=== PATIENT | female | born 1940 | race Two or more races ===

== ENCOUNTER 2023-09-17 13:44 | Outpatient (REF) | payer MEDICARE, SELFPAY ==
[2023-09-17 14:50] LABS: C. Difficile PCR NEGATIVE (NEGATIVE)
== END 2023-09-17 13:45 | disposition home or self-care (01) ==
LOC: LAB 13:44
PROVIDERS: PCP Internal Medicine; Visit Provider Internal Medicine
DX: R19.7 Diarrhea, unspecified (principal)
CPT/HCPCS: 87493

== ENCOUNTER 2024-04-10 20:07 | Observation (INO) | payer MEDICARE, SELFPAY ==
[2024-04-10 20:17] VITALS: BP 140/89; PULSE 78; TEMP 36.7; O2SAT 95; BMI 28.3
--- NOTE | 2024-04-10 21:55 | CT_ITS ---
The [address] [address] Patient Name: MIKE CELAYA MRN: [id number] date: 1940 Sex: F Assigned Patient Location: ER Current Patient Location: ER Accession/Order Number: [id number] Exam Date: 04/10/2024 22:50 Report Date: 04/11/2024 02:23 At the request of: TRENT MARKER Procedure: CT abdomen pelvis w con EXAM: CT abdomen pelvis w con HISTORY: dysfunctional uterine bleeding COMPARISON: None. TECHNIQUE: IV contrast enhanced CT imaging of the abdomen and pelvis was performed. Sagittal and coronal reconstructions are provided. Dose reduction techniques were achieved by using automated exposure control and/or adjustment of mA and/or kV according to patient size and/or use of iterative reconstruction technique. FINDINGS: CT ABDOMEN: The heart is top normal in size. There is no pericardial effusion. Coronary arterial calcifications are seen in the LAD and RCA. The lung bases are clear. The liver, gallbladder, pancreas, spleen, adrenal glands, and right kidney are unremarkable. There is nonspecific mild wall thickening and enhancement in the left renal pelvis and ureter extending to the UVJ. There is wall thickening in the decompressed stomach. There is a small periampullary duodenal diverticulum. The small bowel is otherwise unremarkable. Prominent aortic and iliac arterial calcifications are present without aneurysm or dissection. The IVC is unremarkable. CT PELVIS: There is a markedly abnormal urinary bladder with prominent wall thickening favoring cystitis and a multilobular contour likely due to multiple bladder diverticula. There is a nonspecific ill-defined central mass-like lesion in the bladder lumen, measuring 7 x 5.8 cm and 71 Hounsfield units on image 156 of series 3. Underlying malignant bladder mass cannot be excluded. The endometrial canal is distended with air and layering fluid, measuring 1.1 cm in diameter on image 149. The uterus is otherwise unremarkable. No wall defect is seen. There is prominent sigmoid diverticulosis. Moderate stool is seen in the colon. No free fluid, loculated fluid or free air is seen in the abdomen or pelvis. There is advanced degenerative disc disease at L1-L2. There is a mild grade 1 anterolisthesis of L4 on L5. No acute osseous abnormality or suspicious bony lesion is seen. CT/CT abdomen pelvis w con IMPRESSION: 1. Markedly abnormal urinary bladder with diffuse bladder wall thickening favoring cystitis over chronic wall hypertrophy. Lobular bladder contour is likely due to multiple bladder diverticula. Nonspecific central 7 cm mass-like lesion could reflect blood products though underlying bladder malignancy cannot be excluded. Cystoscopy could further evaluate. 2. Mild wall thickening and enhancement in the left renal pelvis and ureter suspicious for upper urinary tract infection. No pyelonephritis is seen. 3. Mildly distended endometrial cavity with air and layering fluid, nonspecific. In the absence of recent intervention, a potential fistula with adjacent bowel cannot be excluded, though no uterine wall defect is seen. Clinical correlation is recommended. 4. Sigmoid diverticulosis. 5. Nonspecific wall thickening in the decompressed stomach could reflect gastric decompression or nonspecific gastritis. No other potential acute findings are seen in the abdomen or pelvis. Additional nonemergent findings are described above. Electronically authenticated by: TREVOR PRICE Date: 04/11/2024 02:23
[2024-04-10 22:17] LABS: Hematocrit 37.6 % (36.0-48.0); Hemoglobin 11.6 g/dL (12.0-16.0); Mean Corpuscular HGB Conc 30.9 g/dL (29.9-35.2); Mean Corpuscular Volume 84.3 fL (81.0-99.0); Mean Platelet Volume 9.4 fL (9.5-13.5); Platelet Count 238 10^3/uL (150-450); Red Blood Count 4.46 10^6/uL (4.20-5.40); Red Cell Distribution Width 16.3 % (11.0-15.0); White Blood Count 13.4 10^3/uL (4.0-11.0)
[2024-04-10 22:20] LABS: Clarity Urine TURBID (CLEAR); Color Urine DK RED (YELLOW)
[2024-04-10 22:21] LABS: Bilirubin Urine COLOR INTERFERENCE (NEGATIVE); Blood Urine COLOR INTERFERENCE (NEGATIVE); Glucose Urine UA COLOR INTERFERENCE mg/dL (NEGATIVE); Ketones Urine COLOR INTERFERENCE mg/dL (NEGATIVE); Nitrite Urine COLOR INTERFERENCE (NEGATIVE); Protein Urine COLOR INTERFERENCE mg/dL (NEG/TRACE); Specific Gravity Urine >=1.030 (1.005-1.025); Urobilinogen Urine COLOR INTERFERENCE EU/dL (0.2-1.0); pH Urine COLOR INTERFERENCE (5.0-9.0)
[2024-04-10 22:31] LABS: Bacteria Urine NONE SEEN #/HPF (NONE SEEN); Cast Seen? NONE SEEN #/LPF (NONE SEEN); Crystals Seen? None Seen #/HPF (None Seen); Leukocyte Esterase Urine COLOR INTERFERENCE (NEGATIVE); Mucus Urine NONE SEEN (NONE SEEN); RBC Urine >100 #/HPF (0-2); Squamous Epithelial Cell Urine NONE SEEN #/LPF (NONE/RARE); Urine Culture Indicated YES
[2024-04-10 22:36] LABS: Alanine Aminotransferase 23 U/L (14-59); Albumin Globulin Ratio 0.7; Albumin Level 2.7 g/dL (3.4-5.0); Alkaline Phosphatase 133 U/L (46-116); Aspartate Amino Transferase 35 U/L (15-37); BUN Creatinine Ratio 22.7; Bilirubin Total 0.3 mg/dL (0.2-1.0); Calcium 10.2 mg/dL (8.5-10.1); Carbon Dioxide 20.4 mmol/L (21.0-32.0); Chloride 107 mmol/L (98-107); Estimated GFR (African America 43 (>=60 mL/min/1.73m^2); Estimated GFR (Non-African Ame 36 (>=60 mL/min/1.73m^2); Globulin 3.8 g/dL; Glucose 129 mg/dL (74-106); Potassium 4.4 mmol/L (3.5-5.1); Sodium 139 mmol/L (136-145); Total Protein 6.5 g/dL (6.4-8.2)
[2024-04-10 22:41] LABS: Atypical Lymphocytes Abs Man 1.07; Eosinophils Absolute Manual 0.13 10^3/uL (0.00-0.70); Hypochromasia 3+; Lymphocytes Absolute Manual 2.41 10^3/uL (1.20-3.80); Monocytes Absolute Manual 1.34 10^3/uL (0.30-0.80); Poikilocytosis 2+; Segmented Neut Absolute Manual 8.57 10^3/uL (1.4-6.5)
--- NOTE | 2024-04-10 22:55 | PC.NURSE ---
When patient stood to get in W/C mod. amount blood was noted on floor down legs and on socks
[2024-04-10 23:22] VITALS: BP 143/76; PULSE 71; O2SAT 95
--- NOTE | 2024-04-10 23:28 | ED_ITS ---
HPI - Female Genitourinary General Chief complaint: Urogenital-Female Stated complaint: BLEEDING, UNK WHERE Time Seen by Provider: 04/10/24 21:39 Source: family Mode of arrival: Wheelchair Limitations: no limitations History of Present Illness HPI Narrative: This 83-year-old female presents for evaluation of vaginal bleeding that started earlier today. The patient was recently placed on an antibiotic for urinary tract infection. The patient denies any abdominal pain. She denies any pelvic pain. She has not had any weight loss. Her [id number] states that she went to the bathroom and passed several small clots and had vaginal bleeding similar to a menstrual period. The patient did have Pap smears earlier in her life. She is not sexually active. She had 3 children. Related Data Home Medications ?Medication ?Instructions ?Recorded ?Confirmed aspirin 81 mg tablet,delayed 81 mg PO DAILY 04/10/24 04/10/24 release (Ecotrin Low Strength) atorvastatin 40 mg tablet 40 mg PO DAILY 04/10/24 04/10/24 citalopram 40 mg tablet 40 mg PO DAILY 04/10/24 04/10/24 empagliflozin 25 mg tablet 25 mg PO DAILY 04/10/24 04/10/24 (Jardiance) losartan 100 mg tablet 100 mg PO DAILY 04/10/24 04/10/24 metoprolol succinate 100 mg 100 mg PO DAILY 04/10/24 04/10/24 tablet,extended release 24 hr metoprolol succinate 50 mg 50 mg PO DAILY 04/10/24 04/10/24 tablet,extended release 24 hr nitrofurantoin 100 mg PO DAILY 04/10/24 04/10/24 monohydrate/macrocrystals 100 mg capsule omeprazole 20 mg capsule,delayed 20 mg PO DAILY 04/10/24 04/10/24 release spironolactone 25 mg tablet 25 mg PO DAILY 04/10/24 04/10/24 Allergies Allergy/AdvReac Type Severity Reaction Status Date / Time pentazocine (From Jennifer) Allergy Muscle Pain Verified 04/10/24 20:23 amoxicillin AdvReac Nausea Verified 04/10/24 20:23 Review of Systems ROS Status of ROS 10 or more systems reviewed and unremark able except as noted in history and below PFSH PFSH Social History Little interest or pleasure in doing things: not at all Feeling down, depressed, or hopeless: not at all Exam Narrative Exam Narrative: Vital signs and Nursing Notes reviewed: Patient is afebrile with a normal pulse, blood pressure is mildly elevated at 143/76, she is not hypoxic with pulse ox of 95% on room air General: Nontoxic elderly female, she is awake, alert, oriented, no acute distress, lying comfortably on the stretcher HEENT: Normocephalic atraumatic, mucous membranes are moist and pink, eyes are clear, normal conjunctiva, vision is grossly intact, she is hard of hearing Chest: Lungs are clear to auscultation with good air entry, there is no wheezing rhonchi or rales appreciated no accessory muscle use, patient is speaking in complete sentences-no chest wall tenderness to palpation CVS: Regular rate and rhythm S1-S2, no murmurs rubs or gallops, pulses are brisk and equal bilaterally ABD: Soft, nondistended, nontender, no rebound guarding or rigidity, bowel sounds are normal, no pulsatile masses appreciated : Normal-appearing external genitalia, urethra is normal in appearance, there is dark red blood exuding from the vaginal introitus, no notable masses or other abnormalities appreciated on visual expection Extremities: Moving all extremities, no lower extremity tenderness or swelling noted, negative Homans' sign, pulses are brisk and equal bilaterally Skin: Normal in appearance without rash,pallor, petechiae or purpura Neuro: No focal deficits Constitutional Vital Signs, click to edit/add: Last Vital Signs Temp 98.1 F 04/10/24 20:17 Pulse 63 04/11/24 03:39 Resp 20 04/11/24 03:39 BP 125/54 04/11/24 03:39 Pulse Ox 97 04/11/24 03:39 O2 Del Method Room Air 04/11/24 03:39 Course Vital Signs Vital signs: Vital Signs Temperature 98.1 F 04/10/24 20:17 Pulse Rate 78 04/10/24 20:17 Respiratory Rate 18 04/10/24 20:17 Blood Pressure 140/89 04/10/24 20:17 Pulse Oximetry 95 04/10/24 20:17 Oxygen Delivery Method Room Air 04/10/24 20:17 Temperature 98.1 F 04/10/24 20:17 Pulse Rate 63 04/11/24 03:39 Respiratory Rate 20 04/11/24 03:39 Blood Pressure 125/54 04/11/24 03:39 Pulse Oximetry 97 04/11/24 03:39 Oxygen Delivery Method Room Air 04/11/24 03:39 MDM - Female Genitourinary MDM Narrative Medical decision making narrative: This 83-year-old female presents for evaluation of painless vaginal bleeding. She is currently being treated for urinary tract infection and also on Diflucan. She was brought to the emergency department after she started passing some clots from her vagina. She is not having any abdominal pain. She had Pap smears in the past but none recently. She is not on any blood thinners besides a baby aspirin. 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 She is not sexually active. She has not had any pelvic trauma. Her vital signs are stable. Her abdomen is soft. Evaluation of her genitalia reveals bright red blood coming from her vaginal introitus. She was straight cathed and the urine was also bright red. She declined the need for any pain medication. Routine labs were ordered. She has a mildly elevated white count at 13.4 with a stable hemoglobin at 11.6. Lecture lites and liver function tests are normal. CT scan of the abdomen pelvis with IV contrast was ordered and is included in the body of this report. It shows markedly abnormal urinary bladder with diffuse bladder wall thickening favoring cystitis of her chronic wall hypertrophy with a lobular bladder contour likely due to multiple bladder diverticula, nonspecific central 7 cm masslike lesion that could reflect blood products although underlying bladder malignancy could not be excluded with recommendation for cystoscopy. It also showed mild wall thickening and enhancement of the left renal pelvis and ureter suspicious for upper urinary tract infection but no pyelonephritis was seen. It also showed a mildly distended endometrial cavity with air and layering fluid which was nonspecific. It stated in the absence of recent intervention a potential fistula with adjacent bowel could not be excluded although no uterine wall defect was seen. The results of these findings were discussed with the patient and her son. I discussed this with urology on-call at this facility who is concerned that the patient may have a utero-vesicular fistula and he recommended transfer to a tertiary care center. Case was discussed with Dr Baeza at [facility] in [place] who refused her transfer stating that she should be able to have a cystoscopy at this facility and if she has a fistula, that can be dealt with separately. Call was placed to [facility], there is a bed wait and they will call us back. Call was placed to [facility] and we are awaiting a call back from them. Repeat CBC with differential was ordered due to the ongoing bleeding. Her hemoglobin dropped from 11.6-10.8. She has remained hemodynamically stable. There has been no noted stool in her depends and the patient has not noted any stool when she urinates. Medical Records Medical records narrative: [place] [address] CT Scan Report Signed Patient: MIKE CELAYA MR#: [id number] : 1940 Acct:[id number] Age/Sex: 83 / F ADM Date: 04/10/24 Loc: ER Attending Dr: Ordering Physician: Krystal Dinero Date of Service: 04/10/24 Procedure(s): CT abdomen pelvis w con Accession Number(s): [id number] cc: ELMA LINDO ~ The [place] [id number] Patient Name: MIKE CELAYA MRN: [id number] date: 1940 Sex: F Assigned Patient Location: ER Current Patient Location: ER Accession/Order Number: [id number] Exam Date: 04/10/2024 22:50 Report Date: 04/11/2024 02:23 At the request of: KRYSTAL DINERO Procedure: CT abdomen pelvis w con EXAM: CT abdomen pelvis w con HISTORY: dysfunctional uterine bleeding COMPARISON: None. TECHNIQUE: IV contrast enhanced CT imaging of the abdomen and pelvis was performed. Sagittal and coronal reconstructions are provided. Dose reduction techniques were achieved by using automated exposure control and/or adjustment of mA and/or kV according to patient size and/or use of iterative reconstruction technique. FINDINGS: CT ABDOMEN: The heart is top normal in size. There is no pericardial effusion. Coronary arterial calcifications are seen in the LAD and RCA. The lung bases are clear. The liver, gallbladder, pancreas, spleen, adrenal glands, and right kidney are unremarkable. There is nonspecific mild wall thickening and enhancement in the left renal pelvis and ureter extending to the UVJ. There is wall thickening in the decompressed stomach. There is a small periampullary duodenal diverticulum. The small bowel is otherwise unremarkable. Prominent aortic and iliac arterial calcifications are present without aneurysm or dissection. The IVC is unremarkable. CT PELVIS: There is a markedly abnormal urinary bladder with prominent wall thickening favoring cystitis and a multilobular contour likely due to multiple bladder diverticula. There is a nonspecific ill-defined central mass-like lesion in the bladder lumen, measuring 7 x 5.8 cm and 71 Hounsfield units on image 156 of series 3. Underlying malignant bladder mass cannot be excluded. The endometrial canal is distended with air and layering fluid, measuring 1.1 cm in diameter on image 149. The uterus is otherwise unremarkable. No wall defect is seen. There is prominent sigmoid diverticulosis. Moderate stool is seen in the colon. No free fluid, loculated fluid or free air is seen in the abdomen or pelvis. There is advanced degenerative disc disease at L1-L2. There is a mild grade 1 anterolisthesis of L4 on L5. No acute osseous abnormality or suspicious bony lesion is seen. CT/CT abdomen pelvis w con IMPRESSION: 1. Markedly abnormal urinary bladder with diffuse bladder wall thickening favoring cystitis over chronic wall hypertrophy. Lobular bladder contour is likely due to multiple bladder diverticula. Nonspecific central 7 cm mass-like lesion could reflect blood products though underlying bladder malignancy cannot be excluded. Cystoscopy could further evaluate. 2. Mild wall thickening and enhancement in the left renal pelvis and ureter suspicious for upper urinary tract infection. No pyelonephritis is seen. 3. Mildly distended endometrial cavity with air and layering fluid, nonspecific. In the absence of recent intervention, a potential fistula with adjacent bowel cannot be excluded, though no uterine wall defect is seen. Clinical correlation is recommended. 4. Sigmoid diverticulosis. 5. Nonspecific wall thickening in the decompressed stomach could reflect gastric decompression or nonspecific gastritis. No other potential acute findings are seen in the abdomen or pelvis. Additional nonemergent findings are described above. Electronically authenticated by: TREVOR PRICE Date: 04/11/2024 02:23 Lab Data Labs: Lab Results 04/10/24 04/10/24 04/11/24 Range/Units 22:05 22:10 01:26 WBC 13.4 H 14.1 H (4.0-11.0) 10^3/uL RBC 4.46 4.20 (4.20-5.40) 10^6/uL Hgb 11.6 L 10.8 L (12.0-16.0) g/dL Hct 37.6 35.2 L (36.0-48.0) % MCV 84.3 83.8 (81.0-99.0) fL MCH 26.0 L 25.7 L (26.7-34.0) pg MCHC 30.9 30.7 (29.9-35.2) g/dL RDW 16.3 H 16.3 H (11.0-15.0) % Plt Count 238 243 (150-450) 10^3/uL MPV 9.4 L 9.4 L (9.5-13.5) fL Neut % (Auto) 54.9 (43.0-75.0) % Lymph % (Auto) 30.5 (20.5-60.0) % [place] % (Auto) 13.6 H (1.7-12.0) % Eos % (Auto) 0.2 L (0.9-7.0) % Baso % (Auto) 0.4 (0.2-2.0) % Neut # (Auto) 7.7 H (1.4-6.5) 10^3/uL Lymph # (Auto) 4.3 H (1.2-3.8) 10^3/uL [place] # (Auto) 1.9 H (0.3-0.8) 10^3/uL Eos # (Auto) 0.0 (0.0-0.7) 10^3/uL Baso # (Auto) 0.1 (0.0-0.1) 10^3/uL Abs Immat Gran (auto) 0.06 H (0.00-0.03) 10^3/uL Seg Neuts % (Manual) 64.0 (43.0-75.0) Lymphocytes % (Manual) 18.0 L (20.5-60.0) % Atypical Lymphs % (Man) 8.0 % Monocytes % (Manual) 10.0 (1.7-12.0) % Eosinophils % (Manual) 1.0 (0.9-7.0) % Basophils % (Manual) 0.0 L (0.2-2.0) % Imm/Tot Granulo (auto) 0.4 (0.0-0.5) % Neutrophils # (Manual) 8.57 H (1.4-6.5) 10^3/uL Lymphocytes # (Manual) 2.41 (1.20-3.80) 10^3/uL Abs Atypical Lymphs Man 1.07 Monocytes # (Manual) 1.34 H (0.30-0.80) 10^3/uL Eosinophils # (Manual) 0.13 (0.00-0.70) 10^3/uL Basophils # (Manual) 0.00 (0.00-0.10) 10^3/uL Hypochromasia 3+ Poikilocytosis 2+ Sodium 139 (136-145) mmol/L Potassium 4.4 (3.5-5.1) mmol/L Chloride 107 (98-107) mmol/L Carbon Dioxide 20.4 L (21.0-32.0) mmol/L Anion Gap 16.0 BUN 32.0 H (7.0-18.0) mg/dL Creatinine 1.41 H (0.55-1.02) mg/dL Est GFR ( Amer) 43 L (>=60 mL/min/1.73m^2) Est GFR (Non-Af Amer) 36 L (>=60 mL/min/1.73m^2) BUN/Creatinine Ratio 22.7 Glucose 129 H (74-106) mg/dL Calcium 10.2 H (8.5-10.1) mg/dL Total Bilirubin 0.3 (0.2-1.0) mg/dL AST 35 (15-37) U/L ALT 23 (14-59) U/L Alkaline Phosphatase 133 H (46-116) U/L Total Protein 6.5 (6.4-8.2) g/dL Albumin 2.7 L (3.4-5.0) g/dL Globulin 3.8 g/dL Albumin/Globulin Ratio 0.7 Urine Color Dk red A (YELLOW) Urine Clarity Turbid A (CLEAR) Urine pH Color interference A (5.0-9.0) Ur Specific [place] >=1.030 A (1.005-1.025) Urine Protein Color interference A (NEG/TRACE) mg/dL Urine Glucose (UA) Color interference A (NEGATIVE) mg/dL Urine Ketones Color interference A (NEGATIVE) mg/dL Urine Occult Blood Color interference A (NEGATIVE) Urine Nitrite Color interference A (NEGATIVE) Urine Bilirubin Color interference A (NEGATIVE) Urine Urobilinogen Color interference A (0.2-1.0) EU/dL Ur Leukocyte Esterase Color interference A (NEGATIVE) Urine RBC >100 A (0-2) #/HPF Urine WBC 5-10 A (NONE SEEN) #/HPF Ur Squamous Epith Cells None seen (NONE/RARE) #/LPF Urine Crystals None seen (None Seen) #/HPF Urine Bacteria None seen (NONE SEEN) #/HPF Urine Casts None seen (NONE SEEN) #/LPF Urine Mucus None seen (NONE SEEN) Ur Culture Indicated? Yes Blood Type O Positive Antibody Screen Negative Discharge Plan Discharge Chief Complaint: Urogenital-Female Clinical Impression: DUB (dysfunctional uterine bleeding), Hematuria, Mass of bladder Patient Disposition: Still a Patient Prescriptions / Home Meds: No Action atorvastatin 40 mg tablet 40 mg PO DAILY nitrofurantoin monohyd/m-cryst 100 mg capsule 100 mg PO DAILY metoprolol succinate 50 mg tablet extended release 24 hr 50 mg PO DAILY Rx Instructions: In PM citalopram 40 mg tablet 40 mg PO DAILY Jardiance 25 mg tablet 25 mg PO DAILY losartan 100 mg tablet 100 mg PO DAILY spironolactone 25 mg tablet 25 mg PO DAILY Rx Instructions: in am metoprolol succinate 100 mg tablet extended release 24 hr 100 mg PO DAILY Rx Instructions: AM omeprazole 20 mg capsule,delayed release(DR/EC) 20 mg PO DAILY aspirin [Ecotrin Low Strength] 81 mg tablet,delayed release (DR/EC) 81 mg PO DAILY Print Language: Cambodian Referrals: ELMA LINDO [Primary Care Provider] - 1 week
[2024-04-11] VITALS (29 sets, daily range): BP systolic 120–151; BP diastolic 54–79; PULSE 63–75; TEMP 36.4–36.5; O2SAT 90–99; BMI 28.3
[2024-04-11 01:41] LABS: Basophils Absolute Auto 0.1 10^3/uL (0.0-0.1); Basophils Percent Auto 0.4 % (0.2-2.0); Eosinophils Percent Auto 0.2 % (0.9-7.0); Hematocrit 35.2 % (36.0-48.0); Hemoglobin 10.8 g/dL (12.0-16.0); Immature Granulocytes Abs Auto 0.06 10^3/uL (0.00-0.03); Immature Granulocytes Pct Auto 0.4 % (0.0-0.5); Lymphocytes Absolute Auto 4.3 10^3/uL (1.2-3.8); Lymphocytes Percent Auto 30.5 % (20.5-60.0); Mean Corpuscular HGB Conc 30.7 g/dL (29.9-35.2); Mean Corpuscular Hemoglobin 25.7 pg (26.7-34.0); Mean Corpuscular Volume 83.8 fL (81.0-99.0); Mean Platelet Volume 9.4 fL (9.5-13.5); Monocytes Absolute Auto 1.9 10^3/uL (0.3-0.8); Monocytes Percent Auto 13.6 % (1.7-12.0); Neutrophils Absolute Auto 7.7 10^3/uL (1.4-6.5); Neutrophils Percent Auto 54.9 % (43.0-75.0); Platelet Count 243 10^3/uL (150-450); Red Cell Distribution Width 16.3 % (11.0-15.0); White Blood Count 14.1 10^3/uL (4.0-11.0)
[2024-04-11] MEDS: ACETAMINOPHEN 325 MG TABLET 650 MG PO ×4 (01:45→21:28)
[2024-04-11] MEDS: CEFTRIAXONE 1,000 MG in 0.9 % SODIUM CHLORIDE 50 ML 100 MG IV ×2 (03:59→21:28)
--- NOTE | 2024-04-11 07:11 | PC.NURSE ---
[facility] urology denied transfer to their facility at this time.
[2024-04-11 07:46] LABS: Hematocrit 34.3 % (36.0-48.0); Hemoglobin 10.6 g/dL (12.0-16.0); Mean Corpuscular HGB Conc 30.9 g/dL (29.9-35.2); Mean Corpuscular Hemoglobin 26.2 pg (26.7-34.0); Mean Corpuscular Volume 84.7 fL (81.0-99.0); Mean Platelet Volume 9.2 fL (9.5-13.5); Platelet Count 241 10^3/uL (150-450); Red Blood Count 4.05 10^6/uL (4.20-5.40); Red Cell Distribution Width 16.2 % (11.0-15.0); White Blood Count 12.8 10^3/uL (4.0-11.0)
--- NOTE | 2024-04-11 08:07 | PC.NURSE ---
0755 - Pt states she feels wet in her brief. This RN assists her back to bed and completes skin care. brief full of blood -- Dr Harris aware. Pt then assisted back to recliner and blood started trickling down leg. Pt does admit to having some dizziness after laying down.
[2024-04-11 08:09] LABS: Atypical Lymphocytes Abs Man 0.64; Lymphocytes Absolute Manual 3.71 10^3/uL (1.20-3.80); Monocytes Absolute Manual 1.02 10^3/uL (0.30-0.80); Segmented Neut Absolute Manual 7.42 10^3/uL (1.4-6.5)
[2024-04-11 08:10] LABS: Anisocytosis 1+; Hypochromasia 2+; Microcytosis 1+; Ovalocytes 1+; Poikilocytosis 1+
--- NOTE | 2024-04-11 10:22 | PC.NURSE ---
0930 - pt incontinent of stool at this time -- brief changed and skin care completed with new brief and chux placed. Pt would like to stay in bed and rest at this time. VS WNL. Mild amount of blood in brief at this time.
--- NOTE | 2024-04-11 12:37 | PC.NURSE ---
1230 - brought down hospital bed for pt for comfort. assisted from recliner to bed and readjusted for comfort. Pt denies any needs at this time. brief showing scant streak of blood in brief.
[2024-04-11 17:17] LABS: Hematocrit 33.2 % (36.0-48.0); Hemoglobin 10.4 g/dL (12.0-16.0)
--- NOTE | 2024-04-11 17:55 | PM.HP ---
HPI H&P: HPI History of Present Illness Chief complaint: vaginal bleeding Narrative: 83 y o female presented to ED yesterday with painless bleeding from vagina x 3 days. She initially noticed that that there was blood coming out from her vagina but she thinks some may be coming out of urethra also. She also noticed some clots. She has no symptoms to offer and denies difficulty or pain with urination. She also denies pelvic/vaginal trauma. She is not sexually active and takes low dose ASA for hx of CAD. She is not on any anticoagulation. She currently does not have an OBGYN and denies prior hx of abnormal PAP smears. I personally did not perform a pelvic exam but based on ED report, there was bright red blood coming from her vaginal introitus. Upon catheterization, there was blood in her urine also. CT abd pelvis performed in ED revealed markedly abnormal urinary bladder with diffuse bladder wall thickening favoring cystitis of her chronic wall hypertrophy and a nonspecific central 7 cm masslike lesion that could reflect blood products although underlying bladder malignancy could not be excluded. It also showed mild wall thickening and enhancement of the left renal pelvis and ureter suspicious for upper urinary tract infection and a mildly distended endometrial cavity with air and layering fluid which was nonspecific. Case was discussed with Urology at our facility and it was recommended that patient be transferred to a tertiary care center as she would require multiple Urogynecology evaluation that are not available currently at our facility. Patient was accepted for transfer to but has been waiting for a bed. Hospitalist team was consulted to admit her to [facility] floor until bed becomes available. While she has had intermittent gross bleeding since admission, there has not been a sig decline in her Hb and there is no evidence of hemodynamic instability. Patient herself also has no active symptoms to offer. Opioid HPI Opioid Management Most Recent Pain and Opioid Data: Last ORT Total Score 7 04/11/24 17:31 04/11/24 Last ORT Risk Category Moderate Risk 04/11/24 17:31 04/11/24 Review of Systems ROS Status of ROS 10 or more systems reviewed and unremarkable except as noted in history and below [facility] Medical History (Updated 04/11/24 @ 18:14 by Shaikh Cam MD) HLD (hyperlipidemia) ?E78.5 - Hyperlipidemia, unspecified (ICD-10) CKD stage 3 secondary to diabetes ?E11.22 - Type 2 diabetes mellitus with diabetic chronic kidney disease (ICD-10) ?N18.30 - Chronic kidney disease, stage 3 unspecified (ICD-10) Type 2 diabetes mellitus ?E11.9 - Type 2 diabetes mellitus without complications (ICD-10) CAD (coronary artery disease) ?I25.10 - Atherosclerotic heart disease of [place] coronary artery without angina pectoris (ICD-10) HTN (hypertension) ?I10 - Essential (primary) hypertension (ICD-10) Social History (Updated 04/11/24 @ 18:06 by Shaikh Cam MD) Within the past year, how often did you have a drink containing alcohol: never Score interpretation: A score less than 3 is consistent with normal alcohol consumption. Smoking status: Never smoker Non-prescribed substance use: denies use Highest level of school completed/degree received: high school graduate Little interest or pleasure in doing things: not at all Feeling down, depressed, or hopeless: not at all Meds Home Medications and Allergies Home Medications ?Medication ?Instructions ?Recorded ?Confirmed ?Type aspirin 81 mg tablet,delayed 81 mg PO DAILY 04/10/24 04/10/24 History release (Ecotrin Low Strength) atorvastatin 40 mg tablet 40 mg PO DAILY 04/10/24 04/10/24 History citalopram 40 mg tablet 40 mg PO DAILY 04/10/24 04/10/24 History empagliflozin 25 mg tablet 25 mg PO DAILY 04/10/24 04/10/24 History (Jardiance) losartan 100 mg tablet 100 mg PO DAILY 04/10/24 04/10/24 History metoprolol succinate 100 mg 100 mg PO DAILY 04/10/24 04/10/24 History tablet,extended release 24 hr metoprolol succinate 50 mg 50 mg PO DAILY 04/10/24 04/10/24 History tablet,extended release 24 hr nitrofurantoin 100 mg PO DAILY 04/10/24 04/10/24 History monohydrate/macrocrystals 100 mg capsule omeprazole 20 mg capsule,delayed 20 mg PO DAILY 04/10/24 04/10/24 History release spironolactone 25 mg tablet 25 mg PO DAILY 04/10/24 04/10/24 History Allergies Allergy/AdvReac Type Severity Reaction Status Date / Time pentazocine (From Jennifer) Allergy Muscle Pain Verified 04/10/24 20:23 amoxicillin AdvReac Nausea Verified 04/10/24 20:23 Exam Constitutional Vital Signs, click to edit/add: Last Vital Signs Temp 98.1 F 04/10/24 20:17 Pulse 63 04/11/24 03:39 Resp 20 04/11/24 03:39 BP 121/56 04/11/24 12:16 Pulse Ox 98 04/11/24 12:14 O2 Del Method Room Air 04/11/24 03:39 Documenting provider has reviewed patient's vital signs: yes Common normals: no apparent distress and oriented x3 General appearance: cooperative HENMT Common normals: normocephalic and head/scalp atraumatic Head and scalp: normocephalic and atraumatic Eye Common normals: conjunctivae normal and no scleral icterus Conjunctiva: conjunctiva(e) normal Respiratory Common normals: normal respiratory effort and clear to auscultation bilaterally Effort & inspection: able to speak in complete sentences Auscultation: clear to auscultation bilaterally Cardio Common normals: regular rate, S1 normal heart sound and S2 normal heart sound Rate: regular rate Heart sounds: S1 normal and S2 normal GI Common normals: Normal to inspection, nondistended, normoactive bowel sounds present, soft to palpation, non-tender and no hepatosplenomegaly Palpation: soft and no hepatosplenomegaly Extremity Common normals: no clubbing, cyanosis or edema Neuro Common normals: oriented x3, moves all extremities and no focal motor deficits Psych Common normals: mental status grossly normal, denies hallucinations, denies homicidal ideation and denies suicidal ideation Results Labs Labs: Short CBC 04/10/24 04/11/24 04/11/24 Range/Units 22:05 01:26 07:41 WBC 13.4 H 14.1 H 12.8 H (4.0-11.0) 10^3/uL Hgb 11.6 L 10.8 L 10.6 L (12.0-16.0) g/dL Hct 37.6 35.2 L 34.3 L (36.0-48.0) % Plt Count 238 243 241 (150-450) 10^3/uL 04/11/24 Range/Units 17:00 WBC (4.0-11.0) 10^3/uL Hgb 10.4 L (12.0-16.0) g/dL Hct 33.2 L (36.0-48.0) % Plt Count (150-450) 10^3/uL BMP 04/10/24 22:05 Sodium 139 Potassium 4.4 Chloride 107 Carbon Dioxide 20.4 L BUN 32.0 H Creatinine 1.41 H Glucose 129 H Calcium 10.2 H Liver Function 04/10/24 Range/Units 22:05 Total Bilirubin 0.3 (0.2-1.0) mg/dL AST 35 (15-37) U/L ALT 23 (14-59) U/L Alkaline Phosphatase 133 H (46-116) U/L Albumin 2.7 L (3.4-5.0) g/dL Urine 04/10/24 Range/Units 22:10 Urine Color Dk red A (YELLOW) Urine Clarity Turbid A (CLEAR) Urine pH Color interference A (5.0-9.0) Ur Specific [place] >=1.030 A (1.005-1.025) Urine Protein Color interference A (NEG/TRACE) mg/dL Urine Glucose (UA) Color interference A (NEGATIVE) mg/dL Assessment and Plan Assessment and Plan (1) Mass of bladder: (2) Hematuria: Qualifiers: Hematuria type: gross Qualified Code(s): R31.0 - Gross hematuria (3) DUB (dysfunctional uterine bleeding): (4) UTI (urinary tract infection): Qualifiers: Urinary tract infection type: acute cystitis Hematuria presence: with hematuria Qualified Code(s): N30.01 - Acute cystitis with hematuria (5) CKD stage 3 secondary to diabetes: (6) Type 2 diabetes mellitus: Qualifiers: Diabetes mellitus 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 transplanted heart: [place] heart Associated angina: without angina Qualified Code(s): I25.10 - Atherosclerotic heart disease of [place] coronary artery without angina pectoris (8) HTN (hypertension): Qualifiers: Hypertension type: primary hypertension Qualified Code(s): I10 - Essential (primary) hypertension (9) HLD (hyperlipidemia): Qualifiers: Hyperlipidemia type: unspecified Qualified Code(s): E78.5 - Hyperlipidemia, unspecified Plan Patient admitted for DUB/hematuria. Stable hemodynamics. Hb stable. Recheck at 5 pm. On IV rocephin for possible UTI/Cystitis. Cw home medications. Hold Jardiance. Ordered SSI for T2 DM. Hold ASA as patient is bleeding. Awaiting bed availability at [facility]. Urinary Catheter Management Urinary Catheter Management Straight: Cath placed during this visit: yes Urethral indwelling: No Insertion date: 04/10/24 Insertion time: 22:00
--- NOTE | 2024-04-11 21:00 | PC.NURSE ---
bed coordinator call (Arminda) Still no beds available. States that they will call when one is available.
[2024-04-11] MEDS: METOPROLOL SUCCINATE 50 MG TAB.ER.24H PO (21:28)
[2024-04-11 21:37] LABS: Glucometer 145 mg/dL (74-106)
--- NOTE | 2024-04-11 21:55 | PC.NURSE ---
brief noted to have blood(large amount) soaked into the brief. No clots noted.
--- NOTE | 2024-04-11 23:27 | PC.NURSE ---
Shari from transport services called with a bed, [id number], at [facility]. RN called [facility] and estimated ETA at this time is 0815. RN called Shari back with the ETA and pt was made aware. Pt stated that she was going to call her son to update him as well.
[2024-04-12 04:37] VITALS: BP 133/66; PULSE 70; TEMP 36.5; O2SAT 93
[2024-04-12] MEDS: ACETAMINOPHEN 325 MG TABLET 650 MG PO ×2 (04:37→09:20)
[2024-04-12 05:35] LABS: Basophils Absolute Auto 0.1 10^3/uL (0.0-0.1); Basophils Percent Auto 0.6 % (0.2-2.0); Eosinophils Absolute Auto 0.1 10^3/uL (0.0-0.7); Eosinophils Percent Auto 0.8 % (0.9-7.0); Hemoglobin 9.6 g/dL (12.0-16.0); Immature Granulocytes Abs Auto 0.07 10^3/uL (0.00-0.03); Immature Granulocytes Pct Auto 0.7 % (0.0-0.5); Lymphocytes Absolute Auto 3.4 10^3/uL (1.2-3.8); Lymphocytes Percent Auto 34.6 % (20.5-60.0); Mean Corpuscular Hemoglobin 25.7 pg (26.7-34.0); Mean Corpuscular Volume 83.1 fL (81.0-99.0); Mean Platelet Volume 9.2 fL (9.5-13.5); Monocytes Absolute Auto 1.7 10^3/uL (0.3-0.8); Monocytes Percent Auto 16.9 % (1.7-12.0); Neutrophils Absolute Auto 4.6 10^3/uL (1.4-6.5); Neutrophils Percent Auto 46.4 % (43.0-75.0); Platelet Count 227 10^3/uL (150-450); Red Blood Count 3.73 10^6/uL (4.20-5.40); Red Cell Distribution Width 16.5 % (11.0-15.0); White Blood Count 9.9 10^3/uL (4.0-11.0)
[2024-04-12 05:53] LABS: Alanine Aminotransferase 21 U/L (14-59); Albumin Globulin Ratio 0.7; Albumin Level 2.3 g/dL (3.4-5.0); Alkaline Phosphatase 112 U/L (46-116); Anion Gap 12.2; Aspartate Amino Transferase 38 U/L (15-37); BUN Creatinine Ratio 25.8; Bilirubin Total 0.3 mg/dL (0.2-1.0); Calcium 9.4 mg/dL (8.5-10.1); Carbon Dioxide 23.2 mmol/L (21.0-32.0); Chloride 107 mmol/L (98-107); Estimated GFR (African America 48 (>=60 mL/min/1.73m^2); Estimated GFR (Non-African Ame 40 (>=60 mL/min/1.73m^2); Globulin 3.2 g/dL; Glucose 95 mg/dL (74-106); Potassium 4.4 mmol/L (3.5-5.1); Sodium 138 mmol/L (136-145); Total Protein 5.5 g/dL (6.4-8.2)
[2024-04-12] MEDS: OMEPRAZOLE 20 MG CAPSULE.DR PO (06:17)
[2024-04-12] MEDS: CITALOPRAM HYDROBROMIDE 20 MG TABLET 40 MG PO (09:19)
--- NOTE | 2024-04-12 09:19 | PM.DS1 ---
DS: Providers Provider Date of admission: 04/11/24 17:16 Primary care physician: ELMA LINDO Admitting clinician: Shaikh Cam Attending physician on admission: Shaikh Cam Attending physician on discharge: Shaikh Cam Discharging clinician: Shaikh Cam Anticipated date of discharge: 04/12/24 DS: Diagnosis Discharge Diagnosis (1) Mass of bladder: (2) Hematuria: Qualifiers: Hematuria type: gross Qualified Code(s): R31.0 - Gross hematuria (3) DUB (dysfunctional uterine bleeding): (4) UTI (urinary tract infection): Qualifiers: Urinary tract infection type: acute cystitis Hematuria presence: with hematuria Qualified Code(s): N30.01 - Acute cystitis with hematuria (5) CKD stage 3 secondary to diabetes: (6) Type 2 diabetes mellitus: Qualifiers: Diabetes mellitus jail insulin use: without 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 transplanted heart: [place] heart Associated angina: without angina Qualified Code(s): I25.10 - Atherosclerotic heart disease of [place] coronary artery without angina pectoris (8) HTN (hypertension): Qualifiers: Hypertension type: primary hypertension Qualified Code(s): I10 - Essential (primary) hypertension (9) HLD (hyperlipidemia): Qualifiers: Hyperlipidemia type: unspecified Qualified Code(s): E78.5 - Hyperlipidemia, unspecified DS: Summary Hospital Course Hospital Course: 83 y o female presented to ED yesterday with painless bleeding from vagina x 3 days. She also noticed blood in her urine. She had no other symptoms and denied dysuria, polyuria/urgency or abdominal pain. She is on ASA for CAD. She denies pelvic trauma, injury or use of anticoagulants. She is not sexually active. CT abd pelvis revealed markedly abnormal urinary bladder with diffuse bladder wall thickening favoring cystitis, a nonspecific central 7 cm masslike lesion that could reflect blood products although underlying bladder malignancy could not be excluded. It also revealed mild wall thickening and enhancement of the left renal pelvis and ureter suspicious for upper urinary tract infection and a mildly distended endometrial cavity with air and layering fluid which was nonspecific. Case was discussed with Urology at our facility who recommended patient transferred to tertiary care center as she would benefit from Urogynecology and Gyne-Oncology given her presentation. Patient was accepted for transfer to [facility] but there was a considerable wait for bed availability so she was admitted for continued observation to [facility] surg floor. Her Hb has remained stable. She was treated with IV rocephin for UTI. She continues to have mild bleeding which she thinks has slowed down a little. She has no active complaints to offer otherwise. She is medically stable for transfer and is scheduled to leave at 10 am today. Status at Discharge Functional status at discharge: independent ambulation Time Spent with Patient Time attestation: Total time spent providing and/or coordinating discharge services: Time spent: greater than 30 minutes Exam Constitutional Vital Signs, click to edit/add: Last Vital Signs Temp 97.7 F 04/12/24 04:37 Pulse 70 04/12/24 04:37 Resp 18 04/12/24 04:37 BP 133/66 04/12/24 04:37 Pulse Ox 93 L 04/12/24 04:37 O2 Del Method Room Air 04/12/24 04:37 Documenting provider has reviewed patient's vital signs: yes Common normals: no apparent distress and oriented x3 General appearance: cooperative Eye Common normals: conjunctivae normal and no scleral icterus Conjunctiva: conjunctiva(e) normal Respiratory Common normals: normal respiratory effort and clear to auscultation bilaterally Effort & inspection: able to speak in complete sentences Auscultation: clear to auscultation bilaterally Cardio Common normals: regular rate, S1 normal heart sound and S2 normal heart sound Rate: regular rate Heart sounds: S1 normal and S2 normal GI Common normals: Normal to inspection, nondistended, normoactive bowel sounds present, soft to palpation, non-tender and no hepatosplenomegaly Palpation: soft and no hepatosplenomegaly Extremity Common normals: no clubbing, cyanosis or edema Neuro Common normals: oriented x3, moves all extremities and no focal motor deficits Psych Common normals: mental status grossly normal, denies hallucinations, denies homicidal ideation and denies suicidal ideation DS: Data Data Completed and Pending Labs on day of discharge: Labs from last 24 hours 04/12/24 04/11/24 04/11/24 05:25 21:26 17:00 WBC 9.9 RBC 3.73 L Hgb 9.6 L 10.4 L Hct 31.0 L 33.2 L MCV 83.1 MCH 25.7 L MCHC 31.0 RDW 16.5 H Plt Count 227 MPV 9.2 L Neut % (Auto) 46.4 Lymph % (Auto) 34.6 Young % (Auto) 16.9 H Eos % (Auto) 0.8 L Baso % (Auto) 0.6 Neut # (Auto) 4.6 Lymph # (Auto) 3.4 Young # (Auto) 1.7 H Eos # (Auto) 0.1 Baso # (Auto) 0.1 Abs Immat Gran (auto) 0.07 H Imm/Tot Granulo (auto) 0.7 H Sodium 138 Potassium 4.4 Chloride 107 Carbon Dioxide 23.2 Anion Gap 12.2 BUN 33.0 H Creatinine 1.28 H Est GFR ( Amer) 48 L Est GFR (Non-Af Amer) 40 L BUN/Creatinine Ratio 25.8 Glucose 95 Calcium 9.4 Total Bilirubin 0.3 AST 38 H ALT 21 Alkaline Phosphatase 112 Total Protein 5.5 L Albumin 2.3 L Globulin 3.2 Albumin/Globulin Ratio 0.7 POC Glucose 145 H Discharge Plan Discharge Disposition: [facility] Condition: Good [facility]; Dr. Vincent
[2024-04-12 09:20] VITALS: BP 105/63
[2024-04-12] MEDS: ATORVASTATIN CALCIUM 40 MG TABLET PO (09:20)
[2024-04-12] MEDS: METOPROLOL SUCCINATE 100 MG TAB.ER.24H PO (09:20)
[2024-04-12] MEDS: SPIRONOLACTONE 25 MG TABLET PO (09:20)
[2024-04-12 09:21] VITALS: BP 105/63
--- NOTE | 2024-04-12 09:36 | CM.NOTE ---
Rounds made with Dr. Levy. Awaiting transfer to for further intervention.
--- NOTE | 2024-04-12 10:15 | SWNOTE1 ---
Medicare Outpatient Observation Notice reviewed and discussed with patient. Pt. verbalized understanding and signed the form. Original given to patient and copy placed in patient?s chart.
--- NOTE | 2024-04-12 11:07 | PC.NURSE ---
Report called to Balbir at . [facility] here for transport.
== END 2024-04-12 11:07 | disposition short-term general hospital (02) ==
LOC: ER 04-11 16:42 → MS 04-11 17:28
PROVIDERS: Emergency Medicine; Admitting Provider Internal Medicine; Emergency Provider Student in an Organized Health Care Education/Training Program; PCP Internal Medicine; Visit Provider Internal Medicine
DX: N39.0 Urinary tract infection, site not specified (principal); N93.8 Other specified abnormal uterine and vaginal bleeding; N32.9 Bladder disorder, unspecified; R31.0 Gross hematuria; E11.22 Type 2 diabetes mellitus with diabetic chronic kidney disease; N18.31 Chronic kidney disease, stage 3a; I12.9 Hypertensive chronic kidney disease with stage 1 through stage 4 chronic kidney disease, or unspecified chronic kidney disease; E78.5 Hyperlipidemia, unspecified; I25.10 Atherosclerotic heart disease of native coronary artery without angina pectoris; Z79.82 Long term (current) use of aspirin
CPT/HCPCS: 36415; 74177; 80053; 81001; 85007; 85014; 85018; 85025; 85027; 86850; 86900; 86901; 87086; 96365; 96366; 99285; G0378; J0696; Q9967